=== PATIENT | male | born 1940 | race Caucasian/White ===

== ENCOUNTER 2016-05-22 21:54 | Emergency (ER) | payer MEDICARE, BC ==
[2016-05-22 22:28] LABS: URINE APPEARANCE CLOUDY; URINE BILIRUBIN NEGATIVE (NEGATIVE); URINE COLOR RED; URINE GLUCOSE (UA) >=1000 mg/dL (NEGATIVE)
[2016-05-22 22:29] LABS: URINE KETONE NEGATIVE (NEGATIVE)
[2016-05-22 22:30] LABS: URINE BLOOD LARGE (NEGATIVE); URINE LEUKOCYTE ESTERASE NEGATIVE (NEGATIVE); URINE NITRITE NEGATIVE (NEGATIVE); URINE PROTEIN NEGATIVE (NEGATIVE); URINE UROBILINOGEN 0.2 E.U./dL (0.20 - 1.00)
[2016-05-22 22:31] LABS: URINE RBC TNTC (NONE SEEN); URINE WBC 0 - 2 (0-2/hpf)
--- NOTE | 2016-05-22 22:31 | Emergency Department Record ---
History of Present Illness - General Chief complaint: Male Urogenital Problem Stated complaint: BLOOD IN URINE Time Seen by Provider: 05/22/16 22:21 Source: Patient Mode of Arrival: Ambulatory Limitations: No limitations - History of Present Illness Initial comments: 76 yo male presents to ED with a CC of hematuria that began yesterday. Patient reports sympotms of inability to urinate and clots in the urine. Patient reports that he recently underwent a procedure to remove kidney stones from his bladder 11 days prior, and does take Plavix. Patient denies fevers, chills, abdominal pain symptoms, nausea, vomiting, or pain with urination. MD Complaint: Dysuria, Other (hematuria) Onset/Timin -: Days(s) Radiation: None Consistency: Intermittent Improves with: None Worsens with: None Recent surgery, Other Reports: Blood in urine - Related Data Home Medications Medication Instructions Recorded Confirmed Last Taken Ferrous Sulfate [Iron] 65 mg PO DAILY 04/01/14 05/22/16 07/18/14 Multivitamin [Multi-Vitamin Daily] 1 each PO DAILY 04/01/14 05/22/16 07/18/14 Aspirin 81 mg PO DAILY 05/22/16 05/22/16 Unknown Clopidogrel Bisulfate [Plavix] 75 mg PO DAILY 05/22/16 05/22/16 Unknown Rosuvastatin Calcium [Rosuvastatin 5 mg PO DAILY 05/22/16 05/22/16 Unknown Calcium] Vitamin B Complex 1 each PO DAILY 05/22/16 05/22/16 Unknown Allergies Allergy/AdvReac Type Severity Reaction Status Date / Time No Known Drug Allergies Allergy Verified 07/18/14 16:17 Travel Screening - Travel/Exposure Within Last 30 Days Have you traveled within the last 30 days?: No - Travel/Exposure Within Last Year Have you traveled outside the [place] in the last year?: No - Additonal Travel Details Have you been exposed to anyone with a communicable illness?: No - Travel Symptoms Symptom Screening: None Review of Systems Constitutional: Denies: Chills, Fever, Malaise, Night sweats Eyes: Denies: Eye discharge, Eye pain ENT: Denies: Congestion, Ear pain, Epistaxis Respiratory: Denies: Cough, Dyspnea Cardiovascular: Denies: Chest pain, Dyspnea on exertion Endocrine: Denies: Fatigue, Heat or cold intolerance Gastrointestinal: Denies: Abdominal pain, Nausea, Vomiting Genitourinary: Reports: Dysuria, Hematuria Musculoskeletal: Denies: Arthralgia, Back pain, Gout, Joint swelling Skin: Denies: Bruising, Change in color, Rash Neurological: Denies: Abnormal gait, Confusion, Headache, Seizure Psychiatric: Denies: Anxiety Hematological/Lymphatic: Denies: Anemia, Blood Clots Past Medical History - SOCIAL HISTORY Smoking Status: Former smoker Alcohol Use: None Drug Use: None - RESPIRATORY Hx Respiratory Disorders: No - CARDIOVASCULAR Hx Cardio Disorders: Yes Hx Cardiac Cath: Yes Hx Vascular Disease: Yes - NEURO Hx Neuro Disorders: No - GI Hx GI Disorders: No - Hx Genitourinary Disorders: Yes Hx Prostate Problems: Yes - ENDOCRINE Hx Endocrine Disorders: No - MUSCULOSKELETAL Hx Musculoskeletal Disorders: No - PSYCH Hx Psych Problems: No - HEMATOLOGY/ONCOLOGY Hx Hematology/Oncology Disorders: Yes Hx Cancer: Yes (groin surgery at [facility]) Hx Chemotherapy: Yes Hx Radiation Therapy: Yes Family Medical History Any Significant Family History?: No Hx Diabetes: Children Hx HTN: Mother Physical Exam - General General Appearance: Alert, Oriented x3, Cooperative, No acute distress Limitations: No limitations - Head Head exam: Atraumatic, Normocephalic, Normal inspection Head exam detail: negative: Abrasion, Contusion, [place]'s sign, General tenderness, Hematoma, Laceration - Eye Eye exam: Normal appearance. negative: Conjunctival injection, Periorbital swelling, Periorbital tenderness, Scleral icterus - ENT Ear exam: negative: Auricular hematoma, Auricular trauma Nasal Exam: negative: Active bleeding, Discharge, Dried blood, Foreign body Mouth exam: negative: Drooling, Laceration, Muffled voice, Tongue elevation - Neck Neck exam: Normal inspection. negative: Meningismus, Tenderness - Respiratory Respiratory exam: Normal lung sounds bilaterally. negative: Rales, Respiratory distress, Rhonchi, Stridor - Cardiovascular Cardiovascular Exam: Regular rate, Normal rhythm, Normal heart sounds - GI/Abdominal GI/Abdominal exam: Soft. negative: Rebound, Rigid, Tenderness - Rectal Rectal exam: Deferred - exam: Deferred - Extremities Extremities exam: Normal inspection. negative: Calf tenderness, Pedal edema, Tenderness - Back Back exam: Reports: Normal inspection. Denies: CVA tenderness (R), CVA tenderness (L), Paraspinal tenderness, Rash noted - Neurological Neurological exam: Alert, Normal gait, Oriented X3 - Psychiatric Psychiatric exam: Normal affect, Normal mood - Skin Skin exam: Normal color. negative: Abrasion Type of lesion: negative: abrasion Course Vital Signs 05/22/16 22:02 Temperature 98.0 F Pulse Rate [ 102 H Pulse Ox Probe] Respiratory 21 Rate Blood Pressure 134/85 [Left Arm] Pulse Ox 96 - Reevaluation(s) Reevaluation #1: 05/22/16 22:33 Post-void residual 214 mL, will place 3-way sandoval catheter for acute urinary retention with clots present. Reevaluation #2: 05/22/16 22:34 UA reviewed, negative for WBCs or Bacteria. No evidence for infection is present. Reevaluation #3: 05/22/16 23:43 [address] attempts to place sandoval (3-way, [place], 16 [place]), unable to pass the catheter into the bladder. Patient would prefer [facility] for urologic consultation. Case was discussed with Dr. Mays, will accept transfer. Disposition Disposition: Transfer Clinical Impression: Hematuria, Urine retention Transfer To: [facility] Reason For Transfer: Urologic consultation Accepting Physician: Davon Time Discussed w/Accepting Physician: 23:46 Condition: (2) Stable Instructions: Urinary Retention in Men (ED) Additional Instructions: Return to ED if your symptoms worsen or if you have any concerns. Follow-up with Dr. Mock Monday as scheduled. Leave catheter in place until evaluated by Dr. Mock. Forms: Patient Portal Access Time of Disposition: 23:46
[2016-05-22 22:32] LABS: URINE BACTERIA NONE SEEN; URINE EPITHELIAL CELLS NONE SEEN (FEW)
== END 2016-05-23 00:23 | disposition short-term general hospital (02) ==
LOC: ER 21:54
DX: R31.0 Gross hematuria (principal); R33.9 Retention of urine, unspecified; R12 Heartburn; Z87.442 Personal history of urinary calculi
CPT/HCPCS: 81001; 99285

== ENCOUNTER 2018-08-17 08:01 | Emergency (ER) | payer BC, MEDICARE ==
--- NOTE | 2018-08-17 08:09 | Emergency Department Record ---
History of Present Illness - General Stated Complaint: SHORT OF BREATH/NO BM Time Seen by Provider: 08/17/18 08:02 Source: Patient, Family Mode of Arrival: Ambulatory Limitations: No limitations - History of Present Illness Initial Comments: 78 yo male presents with a concern about constipation for the last several days. He states he can not have a bowel movement. When he strains to have a bowel movement he is short of breath. He denies being short of breath any other time other than when he is straining to have a BM. No ERICKSON. No cough. No fever. No chest pain. He did have left sided lung surgery three weeks ago for lung cancer. He states it was localized and he is unaware of any treatment needs going forward. No leg pain or swelling. He is on [place]. He last passed stool 3-4 days ago. MD Complaint: Shortness of breath -: Days(s) Radiation: Other Severity: Moderate Quality: Other Consistency: Constant Improves With: Other (Bowel movements) Worsens With: Other (Constipation) Known History Of: Other Context: Other Associated Symptoms: Other (constipation) - Related Data Home Medications Medication Instructions Recorded Confirmed Last Taken Apixaban [Eliquis] 5 mg PO BID 08/17/18 08/17/18 08/16/18 Carvedilol [Coreg] 3.125 mg PO BID 08/17/18 08/17/18 08/16/18 Cholecalciferol (Vitamin D3) 1,000 unit PO DAILY 08/17/18 08/17/18 08/16/18 [Vitamin D3] Diltiazem HCl [Cardizem LA] 180 mg PO DAILY 08/17/18 08/17/18 08/16/18 Hydrocodone/Acetaminophen [[place] 1 each PO BID 08/17/18 08/17/18 08/16/18 5-325 Tablet] Previous Rx's Medication Instructions Recorded Polyethylene Glycol 3350 [Miralax] 17 gm PO DAILY #30 packet 08/17/18 Allergies Allergy/AdvReac Type Severity Reaction Status Date / Time No Known Drug Allergies Allergy Verified 07/18/14 16:17 Review of Systems Constitutional: Denies: Chills, Fever, Malaise, Weakness Eyes: Denies: Eye discharge ENT: Denies: Congestion, Throat pain Respiratory: Reports: Dyspnea (with bowel movement straining). Denies: Cough, Hemoptysis, Stridor, Wheezes Cardiovascular: Denies: Chest pain, Palpitations, Syncope Endocrine: Denies: Fatigue Gastrointestinal: Reports: As per HPI, Constipation. Denies: Abdominal pain, Diarrhea, Nausea, Vomiting Genitourinary: Denies: Dysuria, Frequency, Hematuria Musculoskeletal: Denies: Arthralgia, Back pain, Joint swelling, Myalgia Skin: Denies: Bruising, Change in color, Rash Neurological: Denies: Headache Psychiatric: Denies: Anxiety Hematological/Lymphatic: Denies: Blood Clots, Easy bleeding, Easy bruising Past Medical History - SOCIAL HISTORY Smoking Status: Former smoker Drug Use: None - RESPIRATORY Hx Respiratory Disorders: No - CARDIOVASCULAR Hx Cardio Disorders: Yes Hx Cardiac Cath: Yes Hx Vascular Disease: Yes - NEURO Hx Neuro Disorders: No - GI Hx GI Disorders: No - Hx Genitourinary Disorders: Yes Hx Prostate Problems: Yes - ENDOCRINE Hx Endocrine Disorders: No - MUSCULOSKELETAL Hx Musculoskeletal Disorders: No - PSYCH Hx Psych Problems: No - HEMATOLOGY/ONCOLOGY Hx Hematology/Oncology Disorders: Yes Hx Cancer: Yes (groin surgery at [facility]) Hx Chemotherapy: Yes Hx Radiation Therapy: Yes Family Medical History Hx Diabetes: Children Hx HTN: Mother Physical Exam - General General Appearance: Alert, Oriented x3, Cooperative, No acute distress Limitations: No limitations - Head Head exam: Atraumatic, Normal inspection - Eye Eye exam: Normal appearance, PERRL. negative: Conjunctival injection, Scleral icterus - ENT ENT exam: Normal exam Ear exam: Normal external inspection Nasal Exam: Normal inspection Mouth exam: Normal external inspection - Neck Neck exam: Normal inspection - Respiratory Respiratory exam: Normal lung sounds bilaterally, Other (Non labored breathing, clear lungs). negative: Accessory muscle use, Chest wall tenderness, Decreased breath sounds, Prolonged expiratory, Respiratory distress, Rhonchi, Stridor, Wheezes - Cardiovascular Cardiovascular Exam: Regular rate, Normal rhythm, Normal heart sounds - GI/Abdominal GI/Abdominal exam: Soft. negative: Distended, Guarding, Tenderness - Rectal Rectal exam: Fecal impaction, Heme (-) stool, Normal prostate. negative: Tenderness - exam: Deferred - Extremities Extremities exam: Normal inspection. negative: Calf tenderness, Pedal edema, Tenderness - Back Back exam: Denies: CVA tenderness (R), CVA tenderness (L) - Neurological Neurological exam: Alert, Oriented X3 - Psychiatric Psychiatric exam: Normal affect, Normal mood. negative: Agitated, Anxious - Skin Skin exam: Dry, Intact, Normal color, Warm Course - Reevaluation(s) Reevaluation #1: 08/17/18 08:15 EKG #1: 08:08 Rate: 70 Rhythm: sinus [place]: L Intervals: LBBB ST segments: CW LBBB Prior: None 08/17/18 08:20 The vitals were reviewed. The are in the normal range. He states he is only symptomatic when straining for a bowel movement. He is non labored. Clear lungs. 08/17/18 08:30 EKG reviewed from [facility]. Prior LBBB noted 10/2017 as well. 08/17/18 08:31 Rectal examination was consistent with firm stool with likely fecal impaction. 08/17/18 08:40 Labs: The labs results were reviewed There are no acute significant abnormalities of the CBC There are no acute significant abnormalities of the CMP 08/17/18 09:10 The AAS demonstrated stool throughout without obstruction. Chest findings improved and stable in the post operative interval. Enema ordered 08/17/18 09:51 RN reports very little output after the MOM enema I performed a manual disimpaction to move out some rectal firm stool 08/17/18 10:20 The patient had an extremely large BM with the second MOM He is symptomatically feeling greatly improved. We discussed home care and reasons to return Medical Decision Making - Lab Data Result diagrams: 08/17/18 08:20 08/17/18 08:20 Disposition Disposition: Discharge Clinical Impression: Constipation Disposition: Home, Self-Care Condition: (1) Good Instructions: Constipation (ED) Additional Instructions: Call your doctor for the next available follow up appointment Review this ER visit and the tests performed with your family doctor Return to the ER for a recheck if worse, any new concerns or questions Take the prescriptions provided as directed Prescriptions: Polyethylene Glycol 3350 [Miralax] 17 gm PO DAILY #30 packet Time of Disposition: 10:22 Quality - Quality Measures Quality Measures: N/A - Blood Pressure Screening Does Patient Have Any of the Following: Active Dx of HTN Blood Pressure Classification: Normal BP Reading Systolic Measurement: 109 Diastolic Measurement: 77 Screening for High Blood Pressure: Patient Exclusion, Hx of HTN [G9744]
[2018-08-17 08:25] LABS: ABSOLUTE NEUTROPHIL COUNT 6.65; BASO % 0.4 % (0-6); EOS % 1.1 % (0-6); GRAN % 79.4 % (47-80); HEMOGLOBIN 13.1 gm/dl (14.0-18.0); LYMPH % 10.9 % (16-45); MEAN CELL VOLUME 91.5 fl (81-97); MEAN CORPUSCULAR HEMOGLOBIN 29.2 pg (27-33); MEAN PLATELET VOLUME 10.5 fl (7.4-10.4); MONO % 8.2 % (0-9); PLATELET COUNT 275 K/uL (130-400); RED BLOOD COUNT 4.48 M/uL (4.40-5.70); WHITE BLOOD COUNT W/O DIFF 8.4 K/uL (4.2-12.2)
[2018-08-17 08:36] LABS: BLOOD UREA NITROGEN 32 mg/dL (8-23); CREATININE 1.1 mg/dL (0.7-1.2); EST GLOMERULAR FILTRATION RATE > 60 mL/min
[2018-08-17 08:39] LABS: GLUCOSE,RANDOM 132 mg/dL (74-109)
[2018-08-17 08:42] LABS: ALB/GLOB RATIO 1.3 (1.1-1.8); ALKALINE PHOSPHATASE 115 U/L (40-129); ALT/SGPT 21 U/L (<41); AST/SGOT 21 U/L (10.0-50.0)
--- NOTE | 2018-08-19 16:00 | RADIOLOGY REPORT ---
EXAM: ABDOMEN, ACUTE SERIES HISTORY: ABDOMINAL PAIN AND CONSTIPATION FOR THREE DAYS. HISTORY OF CORONARY ARTERY BYPASS GRAFT SURGERY. PRIOR HEART VALVE REPAIR. TECHNIQUE: AP supine and upright views of the abdomen are obtained as well as an upright PA view of the chest. COMPARISON: Two-view chest radiographic examination dated 08/02/2018. FINDINGS: Gas and stool are noted throughout a nondilated colon to the level of the rectum. Stool volume is moderate to large. No small bowel dilatation nor worrisome air-fluid level. There is a vascular stent projecting at the level of the right common iliac artery and a smaller stent projecting in the right hemipelvis. An abandon epicardial pacer lead is in place. Multiple surgical clips are scattered in the regions of each hip. Fixation screws are noted within the proximal right femur. There is atherosclerosis of the abdominal aorta without definite aneurysmal dilatation. Post median sternotomy and left thoracotomy changes are redemonstrated with prosthetic heart valve in place. The heart is stable in size, at the upper limits of normal. No pulmonary venous hypertension is seen. No persistent apical pneumothorax. Mild left lateral pleural stripe thickening persists, likely postsurgical. There has been interval clearing of atelectasis from the right lung base. Mild left hemidiaphragm elevation. No definite new lung consolidation. Minor left lateral costophrenic angle blunting is new in the interval suggesting small pleural effusion. IMPRESSION: 1. LARGE AMOUNT OF STOOL WITHIN THE COLON AND RECTUM. NO EVIDENCE OF MECHANICAL BOWEL OBSTRUCTION NOR OTHER ACUTE INTRAABDOMINAL PROCESS. 2. STATUS POST MEDIAN STERNOTOMY AND LEFT THORACOTOMY WITH LEFT HEMITHORAX VOLUME LOSS. 3. NO RESIDUAL PNEUMOTHORAX. INTERVAL CLEARING OF ATELECTASIS FROM THE RIGHT LUNG BASE. NEW MINOR LEFT LATERAL COSTOPHRENIC ANGLE BLUNTING SUGGESTING VERY SMALL PLEURAL EFFUSION. JOB NUMBER: [id number] [facility]
== END 2018-08-17 10:32 | disposition home or self-care (01) ==
LOC: ER 08:01
DX: K59.00 Constipation, unspecified (principal); R06.02 Shortness of breath; C34.90 Malignant neoplasm of unspecified part of unspecified bronchus or lung; Z95.2 Presence of prosthetic heart valve; Z87.891 Personal history of nicotine dependence; Z98.890 Other specified postprocedural states
CPT/HCPCS: 74022; 80053; 85025; 93005; 93010; 99284

== ENCOUNTER 2019-05-28 21:19 | Emergency (ER) | payer MEDICARE ==
--- NOTE | 2019-05-28 21:33 | Emergency Department Record ---
History of Present Illness - General Chief complaint: Male Urogenital Problem Stated complaint: blood in urine Time Seen by Provider: 05/28/19 21:20 Source: Patient Mode of Arrival: Ambulatory Limitations: No limitations - History of Present Illness Initial comments: 79 yo male presents with a pink discoloration of the urine today. He reports he chronically has a weak stream. He has had a prior TURP. He was diagnosed with a UTI by his PCP 5 days ago. He is on Keflex. He denies any current retention but the stream remains weak. No fevers, chills, nausea, vomiting or diarrhea. He is on Eliquis. The onset of the pink urine was this morning. MD Complaint: Dysuria Onset/Timin -: Days(s) Radiation: None Severity: Mild Severity scale (1-10): 3 Quality: Aching Consistency: Constant Improves with: None Worsens with: Urination Other Reports: Blood in urine, Dysuria - Related Data Home Medications Medication Instructions Recorded Confirmed Last Taken Cephalexin 500 mg PO TID 05/28/19 05/28/19 Unknown Previous Rx's Medication Instructions Recorded Polyethylene Glycol 3350 [Miralax] 17 gm PO DAILY #30 packet 08/17/18 Amoxicillin/Potassium Clav 1 tab PO BID #14 tab 05/28/19 [Augmentin 875-125 Tablet] Tamsulosin HCl [Flomax] 0.4 mg PO DAILY #30 cap.er.24h 05/28/19 Allergies Allergy/AdvReac Type Severity Reaction Status Date / Time No Known Drug Allergies Allergy Verified 07/18/14 16:17 Travel/Exposure Screening - Travel/Exposure Within Last 30 Days Have you traveled within the last 30 days?: No - Additonal Travel/Exposure Details Have you been exposed to anyone with a communicable illness?: No Review of Systems Constitutional: Denies: Chills, Fever, Malaise, Weakness Eyes: Denies: Eye discharge ENT: Denies: Congestion, Throat pain Respiratory: Denies: Cough Cardiovascular: Denies: Chest pain Endocrine: Denies: Fatigue, Polydipsia, Polyuria Gastrointestinal: Denies: Abdominal pain, Diarrhea, Nausea, Vomiting Genitourinary: Reports: Dysuria, Frequency, Hematuria. Denies: Retention Musculoskeletal: Denies: Arthralgia, Joint swelling, Myalgia Skin: Denies: Bruising, Change in color, Rash Neurological: Denies: Headache Psychiatric: Denies: Anxiety Hematological/Lymphatic: Denies: Easy bleeding, Easy bruising Past Medical History - SOCIAL HISTORY Smoking Status: Former smoker - RESPIRATORY Hx Respiratory Disorders: No - CARDIOVASCULAR Hx Cardio Disorders: Yes Hx Cardiac Cath: Yes Hx Vascular Disease: Yes - NEURO Hx Neuro Disorders: No - GI Hx GI Disorders: No - Hx Genitourinary Disorders: Yes Hx Prostate Problems: Yes - ENDOCRINE Hx Endocrine Disorders: No - MUSCULOSKELETAL Hx Musculoskeletal Disorders: No - PSYCH Hx Psych Problems: No - HEMATOLOGY/ONCOLOGY Hx Hematology/Oncology Disorders: Yes Hx Cancer: Yes (groin surgery at [facility]) Hx Chemotherapy: Yes Hx Radiation Therapy: Yes Family Medical History Any Significant Family History?: Yes Hx Diabetes: Children Hx HTN: Mother Physical Exam - General General Appearance: Alert, Oriented x3, Cooperative, No acute distress Limitations: No limitations - Head Head exam: Atraumatic, Normal inspection - Eye Eye exam: Normal appearance. negative: Conjunctival injection - ENT ENT exam: Normal exam Ear exam: Normal external inspection Nasal Exam: Normal inspection Mouth exam: Normal external inspection - Neck Neck exam: Normal inspection - Respiratory Respiratory exam: Normal lung sounds bilaterally. negative: Rhonchi, Stridor, Wheezes - Cardiovascular Cardiovascular Exam: Regular rate, Normal rhythm, Normal heart sounds. negative: Irregular rhythm - GI/Abdominal GI/Abdominal exam: Soft. negative: Distended, Guarding, Tenderness - Rectal Rectal exam: Deferred - exam: Circumcision, Normal inspection. negative: Scrotal swelling, Testicular tenderness, Urethral discharge - Extremities Extremities exam: Normal inspection. negative: Pedal edema, Tenderness - Neurological Neurological exam: Alert, Oriented X3 - Psychiatric Psychiatric exam: Normal affect, Normal mood - Skin Skin exam: Dry, Intact, Normal color, Warm Course Vital Signs 05/28/19 21:25 Temperature 98.3 F Pulse Rate [ 88 Left] Respiratory 18 Rate Blood Pressure 198/99 [Left Arm] Pulse Ox 96 - Reevaluation(s) Reevaluation #1: 05/28/19 21:33 Bladder scan performed. Bladder is empty. With an empty bladder no indication for sandoval as he is not retaining. 05/28/19 21:45 [facility] reviewed. 05/16/2019 Urine Cx. Staph species. S to Augmentin, cefazolin, Nitrofurantoin, Oxacillin, Tetracycline R to Gentamicin, Levofloxacin, Bactrim 05/28/19 21:48 05/28/19 21:59 The CBC and BMP were reviewed. No significant changes. 05/28/19 22:17 The patient was able to void after IVF. 05/28/19 22:21 Post void residual is 0. No signs of retention. 05/28/19 22:36 The UA is consistent with UTI still at this point He will be placed on Augmentin and a culture sent He is voiding without retention so no sandoval placed at this time He will be started on Flomax as well. We discussed monitoring for lightheadedness He is to call his PCP and urologist tomorrow morning for close follow up If he has retention he is to return for sandoval placement Medical Decision Making - Lab Data Result diagrams: 05/28/19 21:30 05/28/19 21:30 Disposition Disposition: Discharge Clinical Impression: Dysuria Hematuria Qualifiers: Glomerular morphologic changes: unspecified glomerular morphologic changes Urinary tract infection Qualifiers: Urinary tract infection type: site unspecified Hematuria presence: with hematuria Qualified Code(s): N39.0 - Urinary tract infection, site not specified; R31.9 - Hematuria, unspecified Disposition: Home, Self-Care Condition: (1) Good Instructions: Dysuria (ED) Additional Instructions: Review this ER visit and the tests performed with your family doctor Call your doctor for the next available follow up appointment Return to the ER for a recheck immediately if worse, any new concerns or quest ions Take the prescriptions provided as directed Prescriptions: Amoxicillin/Potassium Clav [Augmentin 875-125 Tablet] 1 tab PO BID #14 tab Tamsulosin HCl [Flomax] 0.4 mg PO DAILY #30 cap.er.24h Referrals: [facility] JO [[email or web address]] - Forms: Patient Portal Access Time of Disposition: 22:39 Quality - Quality Measures Quality Measures: N/A - Blood Pressure Screening Does Patient Have Any of the Following: Active Dx of HTN Blood Pressure Classification: Hypertensive Reading Systolic Measurement: 198 Diastolic Measurement: 99 Screening for High Blood Pressure: Patient Exclusion, Hx of HTN [G9744]
[2019-05-28] MEDS ORDERED: 0.9 % SODIUM CHLORIDE 1,000 ML BAG IV ONE (21:37)
[2019-05-28 21:40] LABS: ABSOLUTE NEUTROPHIL COUNT 4.61; BASO % 0.5 % (0-6); EOS % 2.8 % (0-6); GRAN % 60.7 % (47-80); HEMATOCRIT 45.9 % (42.0-52.0); MEAN CELL VOLUME 88.1 fl (81-97); MEAN CORPUSCULAR HEMOGLOBIN 28.8 pg (27-33); MEAN CORPUSCULAR HGB CONC 32.7 g/dl (32-36); MEAN PLATELET VOLUME 11.4 fl (7.4-10.4); PLATELET COUNT 185 K/uL (130-400); RED BLOOD COUNT 5.21 M/uL (4.40-5.70); RED CELL DISTRIBUTION WIDTH 14.4 % (11.5-14.5); WHITE BLOOD COUNT W/O DIFF 7.6 K/uL (4.2-12.2)
[2019-05-28 21:52] LABS: BLOOD UREA NITROGEN 24 mg/dL (8-23); CREATININE 1.1 mg/dL (0.7-1.2); EST GLOMERULAR FILTRATION RATE > 60 mL/min; PARTIAL THROMBOPLASTIN TIME 27.4 SECONDS (24.5-39.1); PROTHROMBIN TIME (PATIENT) 10.7 SECONDS (9.5-12.1)
[2019-05-28 21:55] LABS: GLUCOSE,RANDOM 150 mg/dL (74-109)
[2019-05-28] MEDS ORDERED: TAMSULOSIN HCL 0.4 MG CAP.ER.24H PO ONE (22:17)
[2019-05-28 22:25] LABS: URINE APPEARANCE TURBID; URINE BILIRUBIN NEGATIVE (NEGATIVE); URINE COLOR RED; URINE GLUCOSE (UA) NEGATIVE (NEGATIVE); URINE KETONE NEGATIVE (NEGATIVE); URINE UROBILINOGEN 0.2 E.U./dL (0.20 - 1.00)
[2019-05-28 22:26] LABS: URINE LEUKOCYTE ESTERASE MODERATE (NEGATIVE); URINE NITRITE POSITIVE (NEGATIVE)
[2019-05-28 22:29] LABS: URINE BLOOD LARGE (NEGATIVE)
[2019-05-28 22:31] LABS: URINE BACTERIA 2+
[2019-05-28] MEDS ORDERED: AMOXICILLIN/POTASSIUM CLAV 875MG/125MG TABLET PO ONE (22:38)
== END 2019-05-28 22:51 | disposition home or self-care (01) ==
LOC: ER 21:19
DX: N39.0 Urinary tract infection, site not specified (principal); R31.0 Gross hematuria; I10 Essential (primary) hypertension; Z87.891 Personal history of nicotine dependence
CPT/HCPCS: 80048; 81001; 85025; 85610; 85730; 99284; 99285; J7030

== ENCOUNTER 2019-05-30 10:22 | Emergency (ER) | payer MEDICARE ==
--- NOTE | 2019-05-30 10:53 | Emergency Department Record ---
History of Present Illness - General Chief complaint: Male Urogenital Problem Stated complaint: HARD TO URINATE HERE 05/29 Time Seen by Provider: 05/30/19 10:29 Source: Patient Mode of Arrival: Ambulatory Limitations: No limitations - History of Present Illness Initial comments: The patient is here due to dysuria for 3 days. He has a long hx of prostate and bladder issues. The patient was diagnosed with a Staph UTI a week ago and was in the ER here 36 hours ago for the same issues. He was here on the for dysuria and blood in the urine and a weak urine stream. He was started on Flomax and had his Abx changed to Augmentin but now is no better. He denies any AP, back pain, fever, or vomiting. He does have an appointment with his Urologist in a week. MD Complaint: Dysuria Onset/Timin -: Days(s) Severity: Mild Severity scale (1-10): 4 Quality: Aching Consistency: Constant Improves with: None Worsens with: None Reports: Blood in urine, Dysuria - Related Data Previous Rx's Medication Instructions Recorded Polyethylene Glycol 3350 [Miralax] 17 gm PO DAILY #30 packet 08/17/18 Amoxicillin/Potassium Clav 1 tab PO BID #14 tab 05/28/19 [Augmentin 875-125 Tablet] Tamsulosin HCl [Flomax] 0.4 mg PO DAILY #30 cap.er.24h 05/28/19 Allergies Allergy/AdvReac Type Severity Reaction Status Date / Time No Known Drug Allergies Allergy Verified 05/30/19 10:44 Travel/Exposure Screening - Travel/Exposure Within Last 30 Days Have you traveled within the last 30 days?: No - Additonal Travel/Exposure Details Have you been exposed to anyone with a communicable illness?: No Review of Systems Constitutional: Denies: Chills, Fever Eyes: Denies: Eye discharge ENT: Denies: Congestion Respiratory: Denies: Dyspnea Past Medical History - SOCIAL HISTORY Smoking Status: Former smoker Alcohol Use: None Drug Use: None - RESPIRATORY Hx Respiratory Disorders: No - CARDIOVASCULAR Hx Cardio Disorders: Yes Hx Cardiac Cath: Yes Hx Vascular Disease: Yes - NEURO Hx Neuro Disorders: No - GI Hx GI Disorders: No - Hx Genitourinary Disorders: Yes Hx Prostate Problems: Yes - ENDOCRINE Hx Endocrine Disorders: No - MUSCULOSKELETAL Hx Musculoskeletal Disorders: No - PSYCH Hx Psych Problems: No - HEMATOLOGY/ONCOLOGY Hx Hematology/Oncology Disorders: Yes 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 negative: Tonsillar erythema, Tonsillar exudate - Neck Neck exam: Normal inspection, Full ROM. negative: Tenderness - Respiratory Respiratory exam: Normal lung sounds bilaterally. negative: Respiratory distress - Cardiovascular Cardiovascular Exam: Regular rate, Normal rhythm, Normal heart sounds - GI/Abdominal GI/Abdominal exam: Soft, Normal bowel sounds. negative: Rebound, Rigid, Tenderness - Extremities Extremities exam: Normal inspection, Full ROM, Normal capillary refill. negative: Tenderness - Neurological Neurological exam: Alert, Normal gait. negative: Abnormal gait, Motor sensory deficit Course Vital Signs 05/30/19 10:39 Temperature 98.3 F Pulse Rate 87 Respiratory 20 Rate Blood Pressure 126/77 Pulse Ox 95 - Reevaluation(s) Reevaluation #1: The patient is doing very well at this time. He denies any pain or discomfort but just feels that he has urinary urgency. I did explain to him that he still does have the infection but I do believe he needs more of the oral Abx since he has only had 2 doses. The bleeding is most likely due to the Eliquis but since he needs it for his heart he is in a difficulty situation. The patient is to continue his meds and see his Urologist next week as directed. The patient is not retaining urine so he will not need a sandoval catheter. 05/30/19 11:54 Medical Decision Making - Data Complexity MDM Data: Labs Ordered and/or Reviewed - Lab Data Result diagrams: 05/30/19 11:05 05/30/19 11:05 Disposition Disposition: Discharge Clinical Impression: Dysuria Urinary tract infection Qualifiers: Urinary tract infection type: site unspecified Hematuria presence: with hematuria Qualified Code(s): N39.0 - Urinary tract infection, site not specified Disposition: Home, Self-Care Condition: (2) Stable Instructions: Urinary Tract Infection in Men (ED) Additional Instructions: Please continue your regular medicines and please see your Urologist next week as planned. Return to the ER for any worsening symptoms. Forms: Patient Portal Access Time of Disposition: 11:57 Quality - Quality Measures Quality Measures: N/A - Blood Pressure Screening View Details: Yes Does Patient Have Any of the Following: No Blood Pressure Classification: Pre-Hypertensive BP Reading Systolic Measurement: 126 Diastolic Measurement: 77 Screening for High Blood Pressure: < Pre-Hypertensive BP, F/U Documented > [G 8950] Pre-Hypertensive Follow-up Interventions: Referral to alternative/primary care provider.
[2019-05-30 11:20] LABS: ABSOLUTE NEUTROPHIL COUNT 5.92; BASO % 0.5 % (0-6); EOS % 1.3 % (0-6); GRAN % 76.8 % (47-80); HEMATOCRIT 43.7 % (42.0-52.0); HEMOGLOBIN 14.4 gm/dl (14.0-18.0); LYMPH % 14.7 % (16-45); MEAN CELL VOLUME 89.2 fl (81-97); MEAN CORPUSCULAR HEMOGLOBIN 29.4 pg (27-33); MEAN PLATELET VOLUME 11.4 fl (7.4-10.4); MONO % 6.7 % (0-9); PLATELET COUNT 181 K/uL (130-400); RED CELL DISTRIBUTION WIDTH 14.4 % (11.5-14.5); WHITE BLOOD COUNT W/O DIFF 7.7 K/uL (4.2-12.2)
[2019-05-30 11:23] LABS: URINE BILIRUBIN NEGATIVE (NEGATIVE); URINE BLOOD LARGE (NEGATIVE); URINE KETONE 15 mg/dL (NEGATIVE); URINE LEUKOCYTE ESTERASE MODERATE (NEGATIVE)
[2019-05-30 11:29] LABS: URINE APPEARANCE TURBID; URINE COLOR RED
[2019-05-30 11:30] LABS: URINE PROTEIN 300 mg/dL (NEGATIVE)
[2019-05-30 11:30] LABS: BLOOD UREA NITROGEN 20 mg/dL (8-23); CREATININE 1.1 mg/dL (0.7-1.2); EST GLOMERULAR FILTRATION RATE > 60 mL/min
[2019-05-30 11:31] LABS: URINE NITRITE POSITIVE (NEGATIVE)
[2019-05-30 11:32] LABS: GLUCOSE,RANDOM 139 mg/dL (74-109)
[2019-05-30 11:34] LABS: URINE BACTERIA 1+; URINE EPITHELIAL CELLS 0 - 2 (FEW); URINE RBC >50 (NONE SEEN)
== END 2019-05-30 12:03 | disposition home or self-care (01) ==
LOC: ER 10:22
DX: N39.0 Urinary tract infection, site not specified (principal); Z87.891 Personal history of nicotine dependence; Z79.01 Long term (current) use of anticoagulants
CPT/HCPCS: 80048; 81001; 85025; 99283